=== PATIENT | male | born 1970 | race Caucasian/White ===

== ENCOUNTER 2016-07-26 13:12 | Emergency (ER) | payer OTHER ==
[~2016-07-26] VITALS: Ht 162.6 cm; Wt 54.1 kg
[~2016-07-26 13:12] MED LIST: NOMED
[2016-07-26 13:15] VITALS: BP 133/93; PULSE 115; RESP 28; O2SAT 100
--- NOTE | 2016-07-26 13:35 | ED.REPORT ---
HPI-Chest Pain 40 and Over Date of Service Jul 26, 2016 ED Provider: The patient is a 46 year old prediabetic male who presents to the emergency department complaining of left-sided chest pain that began suddenly 45 minutes prior to arrival. His pain radiated into his left arm. His pain is not exacerbated with deep breaths or arm movement. He also experienced shortness of breath. He has had a runny nose over the last few days. At this time the pain has improved but he still feels short of breath. He denies fever, chills, productive cough, nausea, vomiting, dysuria, hematuria or diaphoresis. He had a previous episode many years ago. He smokes 1 PPD. He has not been seen by a physician for at least a couple of years. Nursing Notes Stated Complaint: CHEST PAIN/SOB Chief Complaint: Chest Pain Nursing Notes Reviewed: Yes Allergies: Coded Allergies: No Known Allergies (Verified Allergy, Unknown, 01/28/15) Antihistamines - Ethylenediamine (Verified Adverse Reaction, Severe, AGGRESSION, 07/26/16) Miscellaneous Medications No Historical Medication (No Historical Medication) Ea General Time Seen by MD: 13:34 Chief Complaint Chest pain Hx Obtained From: Patient Arrived By: Walk-in Sudden in Onset?: Yes Onset Occurred: 31 - 45 minutes ago Symptom Duration: Since onset Location: : Chest left Quality: Painful Radiation: : Arm left Migration/Movement: Reports: None Severity: Current: Moderate Severity: Maximum: Moderate Recent Healthcare: No recent hospitalization Similar Sx Previous: Yes Past Medical History Past Medical History Pre-diabetic Past Surgical History none reported Family History noncontributory Smoking History Current Every Day Smoker Social History Alcohol Use: Denies alcohol use Drug Use: Denies drug use Other Social History: Good social support, , Lives with children, Local resident Ambulatory Status Independent Review of Systems Constitutional: Denies: Chills, Fever Respiratory: Reports: Shortness of breath, Denies: Non-productive cough, Prod cough, bloody, Prod cough, brown, Prod cough, clear, Prod cough, green, Prod cough, white, Prod cough, yellow Cardiovascular: Reports: Chest pain GI: Denies: Abdominal pain, Diarrhea, Nausea, Vomiting Musculoskeletal: Reports: Extremity pain Skin: Denies Diaphoresis Complete sys rev & neg: except as marked. Male: Denies Dysuria, Denies Hematuria Physical Exam Initial Vital Signs Vital Signs (First) Date Time Temp Pulse Resp B/P Pulse Ox O2 Delivery O2 Flow Rate FiO2 07/26/16 13:15 115 28 133/93 100 Initial VS: Reviewed Head / Eyes: Atraumatic, Normocephalic, PERRL ENT: Mucous membranes moist, Conjunctiva normal, No scleral icterus Neck: Supple, Non-tender, Full range of motion Lymphatic: No lymphadenopathy Extremities: Vascular intact, Neuro intact, No swelling, No tenderness Skin: Warm, Dry, No cyanosis Neurologic: Alert, Oriented, Nonfocal General/Constitutional: Awake, Alert, No acute distress, Well appearing, Cooperative Respiratory / Chest: Atraumatic, Breath sounds NL, Breath sounds = bilat, No respiratory distress, No rales, No rhonchi, No wheezing, No stridor, No chest tenderness Cardiovascular: Regular rhythm, Heart sounds NL, No murmurs, No rubs Heart Rate / Rhythm: Positive: Tachycardia Abdomen: Atraumatic, Soft, Non-tender, McBurney's non-tender, No guarding, No rebound, BS normoactive, No distention, No hernia, No palpable mass Psychiatric: strange affect Interpretation & Diagnostics ECG Interpretation ECG Interpretation: Sinus tachycardia, otherwise unchanged from EKG taken on 01/10/2017 Time: 13:30 Interpreted by: ED physician X-Ray Chest Interpretation View: Portable, 1 view Interpretation / Wet Read by: Wet read ED physician NL X-Ray Chest Findings: No infiltrate, No acute disease Re-Eval/Medical Decision Med Decision/Clinical Course Patient presents tachycardic with all behavior complaining of preceding chest pain with ongoing shortness of breath. He see is not clinically altered, and is competent to make his own medical decisions, he refuses laboratory evaluation. He understands the limitations. His EKG is tachycardia and his chest x-ray is normal. On multiple occasions I strongly recommended that he proceed with laboratory testing however declines. He is discharged AGAINST MEDICAL ADVICE and says that he is somewhat feeling better. He is encouraged to return to ER as needed for worsening symptoms. Source of Hx: Old records Time of Eval: 13:46 Re-Evaluation/Progress Note: The patient would not like labs or an IV because he does not like needles. He is okay with the chest x-ray and EKG. Discussed with him that we can exclude serious medical illnesses. He is unwilling to try medication to help him relax before they draw blood. Time of Eval: 14:26 Re-Evaluation/Progress Note: Rechecked the patient. He continues to refuse any IV and blood draws. He understands the risks of leaving without completing the workup. He will leave against medical advice. Counseled Regarding: Diagnosis Discharge & Departure Primary Impression: Chest pain Chest pain type: unspecified Qualified Code: R07.9 - Chest pain, unspecified Disposition: AGAINST MEDICAL ADVICE Discharge Condition All VS Reviewed: Yes Condition: Stable Additional Instructions: You have refused lab work and have decided to leave against medical advice. Your chest x-ray is normal and your EKG shows that your heart rate is fast. We are always here if you would like to return for further evaluation. Referrals: OTHER,PHYSICIAN (PCP) (Family) Scribe Attestation Portions of this note were transcribed by Candelaria Gautam. I, Dr. Champion personally performed the history, physical exam and medical decision-making; I reviewed and confirmed the accuracy of the information in the transcribed note. Signed by: Don Dorsey, 07/26/2016 and 1435. Leobardo Champion DO Jul 26, 2016 13:35 Candelaria Gautam Jul 26, 2016 13:37
--- NOTE | 2016-07-26 15:19 | DRSVH ---
PROCEDURE: X-RAY CHEST ONE VIEW, PORTABLE ([id number]) INDICATIONS: CHEST PAIN TECHNIQUE: One view of the chest was acquired. COMPARISON: None. FINDINGS: Surgical changes and devices: None. Lungs and pleura: No pleural effusions or pneumothorax. Lungs are clear. Mediastinum: Mediastinal contours appear normal. Heart size is normal. Bones and chest wall: No suspicious bony lesions. Overlying soft tissues appear unremarkable. Heal ed mid right clavicular shaft fracture. IMPRESSION: No acute cardiopulmonary disease. Dictated by: Alvaro Ramon [facility] Interpreted: Ilia Whiteside MD on 07/26/2016 at 15:18 Transcribed by: AMY on 07/26/2016 at 15:18 Approved by: Ilia Whiteside M.D. on 07/27/2016 at 10:47
== END 2016-07-26 14:35 | disposition left against medical advice (07) ==
LOC: SED 13:12
DX: R07.9 Chest pain, unspecified (principal); F17.200 Nicotine dependence, unspecified, uncomplicated; Z88.8 Allergy status to other drugs, medicaments and biological substances